=== PATIENT | female | born 1965 | race Caucasian/White ===

== ENCOUNTER 2024-01-21 12:03 | Outpatient (CLI) | payer OTHER, SELFPAY ==
--- NOTE | 2024-01-21 12:44 | W.ANESCHARGE ---
Anesthesia Charges Start Date/Time Anesthesia Start Date: 01/21/24 Anesthesia Start Time: 12:54 Stop Date/Time Anesthesia Stop Date: 01/21/24 Anesthesia Stop Time: 13:21
--- NOTE | 2024-01-21 13:22 | W.ANESCHARGE ---
Anesthesia Charges Start Date/Time Anesthesia Start Date: 01/21/24 Anesthesia Start Time: 12:54 Stop Date/Time Anesthesia Stop Date: 01/21/24 Anesthesia Stop Time: 13:21
== END 2024-01-21 12:04 | disposition home or self-care (01) ==
LOC: OP CLINIC 12:07
PROVIDERS: PCP Family Medicine; Visit Provider Internal Medicine Gastroenterology
DX: Z12.11 Encounter for screening for malignant neoplasm of colon (principal); K63.5 Polyp of colon; Z86.010 Personal history of colon polyps
CPT/HCPCS: 00811; 45385; 88305; J2704

== ENCOUNTER 2024-08-02 13:28 | Emergency (ER) | payer OTHER, SELFPAY ==
[2024-08-02] VITALS (10 sets, daily range): BP systolic 121–126; BP diastolic 79–95; PULSE 68–85; RESP 20; TEMP 36.6; O2SAT 96–100; BMI 32.6
--- NOTE | 2024-08-02 13:59 | ED.GENADULT ---
HPI - General Adult General Chief complaint: Chest Pain Stated complaint: Sent from for poss heart attack Time Seen by Provider: 08/02/24 13:51 History of Present Illness HPI narrative: around 1210 pt was laying in bed when L sided cp started, sweaty and sob. pt checked bp and it was 150's systolic. felt like heart was beating fast. called clinic and told to go to ED. has had similar episode inthe past but did not do anything about it. 58 year old woman presenting to the emergency department with concern of chest pain or pressure. Began a couple of hours ago prior to this interview. She was at rest at the time. Had an elevated blood pressure at 150 systolic. She felt like her heart was racing. She has also been sweaty. [place] a little short of breath. Since May in the think exposure [place] [employer] [place] has been having intermittent exertional dyspnea. She has been working at trying to lose weight but with a new scale at seem to suggest that she had gained weight here recently. Says some left-sided chest pain that she believes is since a rather firm ultrasound experience with residual pain at the left low chest and in the armpit. Has had a cholecystectomy Later also reports a more remote history of a parathyroid nodule and what sounds like was hypercalcemia. Later clarification -- these episodes can occur randomly but usually apparently at some degree of activity but maybe just walking in the grocery store partial feel chest tightness and feel like her heart is racing. Related Data Home Medications ?Medication ?Instructions ?Recorded ?Confirmed Flexeril 08/02/24 aspirin 08/02/24 atorvastatin 20 mg tablet 20 mg PO QPM 08/02/24 08/02/24 conjugated estrogens 0.625 mg 0.625 mg PO DAILY 08/02/24 08/02/24 tablet (Premarin) gabapentin 300 mg capsule 300 mg PO BID 08/02/24 08/02/24 metoprolol succinate 100 mg 100 mg PO DAILY 08/02/24 08/02/24 tablet,extended release 24 hr omeprazole 40 mg capsule,delayed 40 mg PO DAILY 08/02/24 08/02/24 release Allergies Allergy/AdvReac Type Severity Reaction Status Date / Time simvastatin Allergy Mild Nausea Verified 01/21/24 12:59 Sulfa (Sulfonamide Allergy Mild Itching Verified 08/02/24 13:42 Antibiotics) Paper tape Allergy Mild Unknown Uncoded 01/21/24 12:59 Review of Systems Status of ROS: Reports: 6 or more systems reviewed and unremarkable except as noted in History and below Exam Narrative: Exam Narrative: Pleasant. Animated. Skin is warm and dry. She is mildly labored with her breathing. Uncomfortable to palpation across the chest and in the axilla as well as the left low costal margin. Lungs are clear. Heart is in regular rate and rhythm without murmur or gallop. Abdomen is soft. Little tender just right of epigastrium without with deeper pressure. Const: Vital Signs, click to edit/add: Vital Signs - 24 hr 08/02/24 13:37 08/02/24 14:01 08/02/24 14:32 Temperature Pulse Rate 82 75 Pulse Rate [Pulse Oximeter] 85 Respiratory Rate 20 Blood Pressure 124/95 H 126/85 Blood Pressure [Le ft Upper Arm] 123/87 Pulse Oximetry 100 98 98 Oxygen Delivery Me thod Room Air 08/02/24 15:01 08/02/24 15:19 08/02/24 16:01 Temperature 97.8 F Pulse Rate 73 75 Pulse Rate [Pulse Oximeter] Respiratory Rate Blood Pressure 121/84 124/79 Blood Pressure [Le ft Upper Arm] Pulse Oximetry 96 96 Oxygen Delivery Me thod Documenting provider has reviewed patient's vital signs: yes Course Vital Signs Vital signs: Initial Vital Signs Temperature Source Temporal Artery Scan 08/02/24 13:37 Pulse Rate 85 08/02/24 13:37 Respiratory Rate 20 08/02/24 13:37 Respiratory Effort Normal, Spontaneous 08/02/24 13:37 Respiratory Depth Normal 08/02/24 13:37 Respiratory Pattern Normal 08/02/24 13:37 Blood Pressure 123/87 08/02/24 13:37 Blood Pressure Mean 99 08/02/24 13:37 Blood Pressure Position Supine 08/02/24 13:37 Pulse Oximetry 100 08/02/24 13:37 Oxygen Delivery Method Room Air 08/02/24 13:37 Vital Signs Pulse Rate 85 08/02/24 13:37 Respiratory Rate 20 08/02/24 13:37 Blood Pressure 123/87 08/02/24 13:37 Pulse Oximetry 100 08/02/24 13:37 Oxygen Delivery Method Room Air 08/02/24 13:37 Temperature 97.8 F 08/02/24 15:19 Pulse Rate 68 08/02/24 16:45 Respiratory Rate 20 08/02/24 13:37 Blood Pressure 124/79 08/02/24 16:01 Pulse Oximetry 97 08/02/24 16:45 Oxygen Delivery Method Room Air 08/02/24 13:37 Medical Decision Making MDM Narrative Medical decision making narrative: Does appear to have some reproducibility to this chest discomfort. I think anxiety might be contributing. Will need to check though that this does not represent pulmonary embolus or pneumothorax/pneumomediastinum. Doubtful pneumonia. Monitor for arrhythmia/tachyarrhythmia. Costochondritis? EKG obtained already prior to me entering the room independently reviewed by me shows normal sinus rhythm at a rate of 82 without apparent ischemic changes. These maybe tachyarrhythmias. These might be attacks of anxiety Monitored on alarm security or surveillance monitor without event. Labs are reassuring including repeat troponin. Symptoms improved. Vitals stable. Chest x-ray independently reviewed by me looks to be without infiltrate or pneumothorax and with normal cardiac silhouette. Radiology over-read below INDICATION: Mid chest pain. TECHNIQUE: Chest 1 view(s) COMPARISON: None. FINDINGS: Cardiomediastinal silhouette and pulmonary vasculature are normal. No focal consolidation. No layering pleural effusion. No pneumothorax. Ill-defined lesion in the proximal right humerus, with chondroid appearing matrix. IMPRESSION: 1. No focal consolidation. 2. Indeterminate lesion in the proximal right humerus, with chondroid appearing matrix. This can be further evaluated with MRI, on a nonemergent basis. Discussed these findings with Ms. Rodriguez and her . Pending findings in rhythm monitoring, might need echocardiogram. May benefit from pulmonary function tests. See patient discharge plan for further discussion We are placing a ZIO patch on you. Follow-up as recommended and results with your primary care provider approximately a week after monitoring window. There may want further cardiac workup or maybe pulmonary. Also inquire with your doctor as to whether not there is prior imaging that might show this right humeral head lesion and offer some reassurance of stability or whether or not further workup is indicated. Medical Records Medical records reviewed: Yes I reviewed the patient's medical records Lab Data Lab results reviewed: Yes I reviewed the patient's lab results Labs: Lab Results 08/02/24 08/02/24 08/02/24 Range/Units 13:45 14:18 15:32 WBC 5.87 (4.50-11.00) K/uL RBC 4.86 (4.00-5.20) m/uL Hgb 13.7 (12.0-16.0) gm/dL Hct 42.0 (33.0-51.0) % MCV 86 (80-100) fL MCH 28 (26-34) pg MCHC 33 (32-36) gm/dL RDW Coeff of Nilda 13.6 (11.5-15.5) % Plt Count 342 (140-440) K/uL Neut % (Auto) 42.9 (42.0-72.0) % Lymph % (Auto) 42.6 (20-44) % Ford % (Auto) 8.3 (0.0-11.0) % Eos % (Auto) 5.3 (0.0-7.0) % Baso % (Auto) 0.9 (0.0-3.0) % Neut # (Auto) 2.52 (1.7-7.0) K/uL Lymph # (Auto) 2.50 (0.90-2.90) K/uL Ford # (Auto) 0.50 (0.00-0.90) K/UL Eos # (Auto) 0.31 (0.00-0.50) K/uL Baso # (Auto) 0.05 (0.00-0.30) K/uL Abs Immat Gran (auto) 0.00 (0.00-0.30) K/uL Imm/Tot Granulo (auto) 0.0 % D-Dimer Quant (PE/DVT) 0.32 (0.00-0.50) ug/ml Sodium 136 (135-149) mmol/L Potassium 4.0 (3.6-5.1) mmol/L Chloride 103 (96-114) mmol/L Carbon Dioxide 22 (20-32) mmol/L Anion Gap 11 (7-15) mEq/L BUN 12 (7-30) mg/dL Creatinine 0.8 (0.5-1.5) mg/dL Estimated Creat Clear 70.88 Estimated GFR 85 ml/min Glucose 115 (60-115) mg/dL Calcium 9.2 (8.4-10.6) mg/dL Total Bilirubin 0.5 (0.1-1.5) mg/dL Direct Bilirubin 0.2 (0.0-0.5) mg/dL AST 26 (12-35) U/L ALT 25 (4-35) U/L Alkaline Phosphatase 67 (40-150) U/L Troponin I < 0.01 L (0.01-0.04) ng/mL C-Reactive Protein < 0.5 L (0.5-1.0) mg/dL NT-Pro-B Natriuret Pep 47 pg/mL Total Protein 7.7 (6.0-8.3) g/dL Albumin 4.4 (3.3-5.0) g/dL POC Troponin I 0.00 L 0.00 L (0.01-0.04) ng/ml Discharge Plan Discharge Clinical Impression: Atypical chest pain, Bone lesion Patient Disposition: Home w/ Parent or Adult Condition: Improved Additional Instructions: We are placing a ZIO patch on you. Follow-up as recommended and results with your primary care provider approximately a week after monitoring window. There may want further cardiac workup or maybe pulmonary. Also inquire with your doctor as to whether not there is prior imaging that might show this right humeral head lesion and offer some reassurance of stability or whether or not further workup is indicated. Prescriptions: No Action atorvastatin 20 mg tablet 20 mg PO QPM metoprolol succinate 100 mg tablet extended release 24 hr 100 mg PO DAILY omeprazole 40 mg capsule,delayed release(DR/EC) 40 mg PO DAILY Premarin 0.625 mg tablet 0.625 mg PO DAILY gabapentin 300 mg capsule 300 mg PO BID aspirin Flexeril Follow Up/Referrals: Yulia Pride MD [Primary Care Provider] - Stand Alone Forms: Code On Network Coding Info Instructions
[2024-08-02 14:30] LABS: Basophils Absolute Auto 0.05 K/uL (0.00-0.30); Basophils Percent Auto 0.9 % (0.0-3.0); Eosinophils Absolute Auto 0.31 K/uL (0.00-0.50); Eosinophils Percent Auto 5.3 % (0.0-7.0); Hemoglobin* 13.7 gm/dL (12.0-16.0); Lymphocytes Percent Auto 42.6 % (20-44); Mean Corpuscular HGB Conc 33 gm/dL (32-36); Mean Corpuscular Hemoglobin 28 pg (26-34); Mean Corpuscular Volume 86 fL (80-100); Monocytes Percent Auto 8.3 % (0.0-11.0); Neutrophils Absolute Auto 2.52 K/uL (1.7-7.0); Neutrophils Percent Auto 42.9 % (42.0-72.0); Platelet Count* 342 K/uL (140-440); RDW Coefficient of Variation % 13.6 % (11.5-15.5); Red Blood Count 4.86 m/uL (4.00-5.20); White Blood Count* 5.87 K/uL (4.50-11.00)
[2024-08-02 14:47] LABS: Albumin* 4.4 g/dL (3.3-5.0); Chloride* 103 mmol/L (96-114)
[2024-08-02 14:48] LABS: Sodium* 136 mmol/L (135-149)
[2024-08-02 14:50] LABS: Creatinine* 0.8 mg/dL (0.5-1.5); Est. Creatinine Clearance* 70.88; Estimated Glomerular Filt Rate 85 ml/min
[2024-08-02 14:51] LABS: Alanine Aminotransferase* 25 U/L (4-35); Alkaline Phosphatase* 67 U/L (40-150); Anion Gap 11 mEq/L (7-15); Aspartate Amino Transferase* 26 U/L (12-35); Bilirubin Direct* 0.2 mg/dL (0.0-0.5); Bilirubin Total* 0.5 mg/dL (0.1-1.5); Blood Urea Nitrogen* 12 mg/dL (7-30); Calcium* 9.2 mg/dL (8.4-10.6); Carbon Dioxide* 22 mmol/L (20-32); Glucose* 115 mg/dL (60-115); Total Protein* 7.7 g/dL (6.0-8.3)
[2024-08-02 14:54] LABS: C Reactive Protein* < 0.5 mg/dL (0.5-1.0); Slide Review Reflex No
[2024-08-02 14:57] LABS: D Dimer Quantitative* 0.32 ug/ml (0.00-0.50)
[2024-08-02 15:08] LABS: NT Pro B Type NatriureticPept* 47 pg/mL; Troponin I* < 0.01 ng/mL (0.01-0.04)
--- OUTSIDE RECORDS SUMMARY | 2024-08-02 16:16 | XMS_ITS | Continuity of Care Document ---
Author Organization [facility] Address [address] [place] [address] Phone Care Team Providers Care Workforce Management Analyst Name Role Phone Unavailable Unavailable Unavailable Allergies, Adverse Reactions, Alerts Substance Reaction Status Criticality Sulfa (Sulfonamide Antibiotics) hives Active No Information Medications Medication Instructions Dosage Effective Dates (start - stop) Status Comments Reglan 10 mg Tab - No Longer Active Nasonex 50 mcg/Actuation [place] - No Longer Active Singulair 10 mg Tab - No Longer Active Zyrtec 10 mg Tab - No Longer Active methocarbamol 750 mg Tab pt takes 2 tabs TID - No Longer Active ibuprofen 600 mg Tab 2006 - No Longer Active Neurontin 300 mg Cap Take two capsules by mouth three times per day - No Longer Active Procedures Procedure Date Inj Anes Epidur; Lumb/sac 1 Le 07 Fluoroscopic Guidance For Needle 2006 Offic Cons New/estab Mod-hi 60 07 Advance Directives Directive Yes / No Effective Date File Name No Information Encounters Encounter Description Practice Location Reason(s) For Visit Diagnoses Date Provider Providers Copied on Encounter [facility], [address], [place], [place], [id number], tel:[phone] [facility] No Information No Information Referring Provider: Marcos Nixon MD, [address] [place] [address] [address] [facility] [place], [place], [facility]. tel:[phone] [facility], [address], [place], [id number], tel:[phone] [facility] No Information Oct-0 9-200 7 No Information Referring Provider: Marcos Nixon MD, [address] [place] [address] [address] [facility] [place], [place], [facility]. tel:[phone] Offic Cons New/estab Mod-hi 60 [facility], [address], [place], [place], [id number], tel:[phone] [facility] No Information Oct-0 4-200 7 Jenna Farrell. [address], [place], [id number], . tel:[phone] Referring Provider: Marcos Nixon MD, [address] [place] [address] [address] [facility] [place], [place], [facility]. tel:[phone] Family History Family Member Type Diagnosis Age At Onset No Information Payers Payer name Insurance type Covered republican ID Authormayelin cole(s) [employer] Plus BL [id number] Social History Type Description Quantity Date Captured Comments Sex Female Smoking Status No Information Chief Complaint And Reason For Visit No Information Reason For Referral Reason For Referral No Information History Of Present Illness Encounter Date Complaint History Of Prese nt Illness No Information Functional Status Date Functional Assessmen t No Information Instructions Date Instruction Additional Infor mation No Information Assessments Type Assessment Date No Information Patient Care Teams Name Effective Dates (start - stop) Status Members No Information
--- OUTSIDE RECORDS SUMMARY | 2024-08-02 16:16 | XMS_ITS | Clinical Summary ---
Author Organization [facility] Address [place], [place] [address] Care Team Providers Care Software Technician Name Role Phone Yulia Pride MD Primary Care Provider + Allergies Active Allergy Reactions Criticality Noted Date Comments Adhesive Rash Low 11/19/2009 Paper tape Simvastatin Nausea And Vomiting,Hepatic Dysfunction Low 07/24/2015 Sulfa (Sulfonamide Antibiotics) Itching,Edema Low 09/23/2005 Medications ZYRTEC 10 MG TAB Take one tablet daily for allergies 30 5 2005 Active aspirin (ECOTRIN) 81 mg enteric coated tablet Take 1 tablet by mouth once daily with a meal. 0 2016 Active estrogens conjugated (Premarin) 0.625 mg tabletIndications:Post menopausal syndrome Take 1 Tablet (0.625 mg) by mouth once daily. 90 Tablet 3 2023 Active gabapentin (NEURONTIN) 300 mg capsuleIndications:Chr onic midline thoracic back pain Take 1 Capsule (300 mg) by mouth two times daily. 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 180 Tablet 3 2023 Active melatonin 10 mg cap Take 10 mg by mouth once daily if needed. Active atorvastatin (LIPITOR) 20 mg tabletIndications:Pure hypercholesterolemia TAKE 1 TABLET BY MOUTH AT BEDTIME 90 Tablet 1 2024 Active omeprazole (PRILOSEC) 40 mg Delayed-Release capsuleIndications:Gas troesophageal reflux disease with esophagitis without hemorrhage Take 1 Capsule (40 mg) by mouth once daily before a meal. 90 Capsule 1 2024 Active metoprolol succinate (TOPROL XL) 100 mg Sustained-Release tabletIndications:Esse ntial hypertension Take 1 Tablet (100 mg) by mouth once daily. 90 Tablet 1 2024 Active DULoxetine (CYMBALTA) 60 mg Delayed-release capsuleIndications:Chr onic midline thoracic back pain Take 1 Capsule (60 mg) by mouth once daily. 90 Capsule 1 2024 Active DULoxetine (CYMBALTA) 60 mg Delayed-release capsuleIndications:Chr onic midline thoracic back pain Take 1 Capsule (60 mg) by mouth once daily. 90 Capsule 3 07/24 Discontinued( *Availability /Formulary change/Cost of medication) metoprolol succinate (TOPROL XL) 100 mg Sustained-Release tabletIndications:Esse ntial hypertension Take 1 Tablet (100 mg) by mouth once daily. 90 Tablet 3 07/24 Discontinued( *Availability /Formulary change/Cost of medication) omeprazole (PRILOSEC) 40 mg Delayed-Release capsuleIndications:Gas troesophageal reflux disease with esophagitis without hemorrhage Take 1 Capsule (40 mg) by mouth once daily before a meal. 90 Capsule 3 07/24 Discontinued( *Availability /Formulary change/Cost of medication) atorvastatin (LIPITOR) 20 mg tabletIndications:Pure hypercholesterolemia Take 1 Tablet (20 mg) by mouth at bedtime. 90 Tablet 2 07/20 Discontinued Active Problems Problem Noted Date Diagnosed Date History of colon polyps 09/04/2020 Overview (01/25/2024): Noted at [place] 2006. 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 Repeat BMD scan 07/2016 showed normal lumbar spine. -19. & -1.8 of the hips. 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 Mammogram normal 11/06/10 Cholesterol 01/11: total-241/HDL-39/LDL-158/TG-222 Bone density at [place] 2006 normal. Depressive disorder, not elsewhere classified 03/02/20 05 10/23/2010 ALLERGY UNSPECIFIED 12/03/2004 10/24/19 11 EXOTROPIA, MONOCULAR-OS 11/04/200010/04 Encounters Date Type Department Care Team Description 08/02/2024 Nurse [address] [address] Yulia Pride MD Chest Pain 07/21/[address] [address] Yulia Pride MD Refill Request (Omeprazole, Metoprolol Succinate, Duloxetine) 07/18/[address] [address] Yulia Pride MD Refill Request (Atorvastatin) from Last 3 Months Immunizations Name Administration Dates Next Due COVID-19 VACCINE COMIRNATY (PFIZER-BIONTECH 30MCG/0.3ML) 12YO+ PFS 05/17/2023 COVID-19 vaccine (Moderna 50mcg/0.5mL) 12YO+ BIVALENT PF, MDV 05/19/2022 COVID-19 vaccine (Pfizer-Bio NTech 30mcg/0.3mL) 12YO+ ANGELINA-SUCROSE PF, MDV 12/05/2021 COVID-19 vaccine (Pfizer-Bio NTech 30mcg/0.3mL) PF, MDV 06/06/2021,10/28/2020,10/07/2020, 021 Influenza RIV4 (Age 18+ Year s) PRESERV FREE 05/19/2022 Influenza, IIV4 05/17/2023 Td (Age >=7 Years) 01/11/2019,03/02/2005 Tdap 12/27/2007 Family History Medical History Relation Name Comments Good Health Brother Hypertension Father Other Father anklyosising sp ondylsis Alcohol/Drug Mother Hypertension Mother Stroke Mother Genetic Other 1 cancer~hyperten moises - mother~heart disease~diabetes - grandfather Genetic Other 2 cancer~hyperten moises - mother~heart disease~diabetes - grandfather~2 children with strabismus Diabetes Paternal Grandfather Good Health Sister Asthma Son Relation Name Status Comments Brother Alive Father Alive Maternal Grandfather Maternal Grandmother Mother Other 1 Other 2 Paternal Grandfather Paternal Grandmother Sister Alive Son Alive Social History Tobacco Use Types Packs/Day Years Used Date Smoking Tobacco: Former Cigarettes 0.3 22 1 - 04/22/2020 Smokeless Tobacco: Never Tobacco Cessation:Ready to Q uit: Yes Comments:planning to quit soon Alcohol Use Standard Drinks/Week Comments Not Currently 0 (1 standard drink = 0.6 oz pur e alcohol) quit fall 2016 PHQ-2 Answer Date Recorded PHQ-2 TOTAL SCORE 0 10/29/2023 Social Connections Answer Date Recorded Do you often feel lonely or isolated from those around you? 0 10/29/2023 Financial Resource Strain Answer Date R ecorded Difficulty of Paying Living Expenses 3 10/29/2023 Difficulty of Paying Living Expenses Not on file 10/29/2023 Food Insecurity Answer Date Recorded Do you worry your food will run out before you are able to buy more? 1 10/29/2023 Transportation Needs Answer Date Record ed Does lack of transportation keep you from medica l appointments? 1 10/29/2023 Does lack of transportation keep you from work, meetings or getting things that you need? 1 10/29/2023 Housing Stability Answer Date Recorded What is your housing situation today? 1 10/29/2023 Utilities Answer Date Recorded Do you have trouble paying f or utilities (for example, heat, electricity, water, phone)? 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 [employer] Gender Identity Not on file Sexual Orientation Not on file Obstetrics History Para Term AB IAB SAB Ectopic Multiple Livin g Live Births 3 3 Date Outcome GA Total Labor Labor/2nd/3rd Weight Sex Type Anes PTL Anna Marie A1 A5 Name Clin Last Filed Vital Signs Vital Sign Reading Time Taken Comments Blood Pressure 110/80 01/10/2024 1:58 PM CDT Pulse 84 01/10/2024 1:58 PM CDT Temperature 36.6 C (97.9 F) 01/10/2020 8:14 AM CDT Respiratory Rate 14 11/14/2012 2:49 PM CDT Oxygen Saturation - - Inhaled Oxygen Concentration - - Weight 95.1 kg (209 lb 9.6 oz) 01/10/2024 1:58 P M CDT Height 167.6 cm (5' 6) 01/10/2024 1:58 PM CDT Body Mass Index 33.83 01/10/2024 1:58 PM CDT Plan of Treatment Health Maintenance Due Date Last Done Comments HIV for age 15-65 1979 Hepatitis C screening for ag e 18-79 1982 Pneumococcal series for age 50+ (1 of 1 - PCV) 2014 Zoster (shingles) series for age 50+ (1 of 2) 2014 COVID-19 vaccine series ( season) 2024 05/17/2023, 05/19/2022, 12/05/2021, Additional history exists Depression screening for age 12+ 10/28/2024 10/29/2023, 10/29/2023, 10/16/2022, Additional history exists Mammogram for age 45-75 11/24/2024 11/25/19 24, 11/23/2023, 11/17/2022, Additional history exists BMI (ht and wt on same day) for age 18+ 01/09/2025 01/10/2024, 10/29/2023, 10/16/2022, Additional history exists Lipids for age 45-75 10/28/2028 10/29/2023, 10/16/2022, 10/10/2021, Additional history exists Tetanus booster 01/11/2029 01/11/2019, 12/04, 03/02/2005 Colonoscopy through age 75 01/20/203101/20, 01/21/2024, 08/03/2014, Additional history exists Tdap Completed 12/27/2007 Procedures Procedure Name Priority Date/Time Associated Diagnosis Comments COLONOSCOPY SCREENING Routine 01/21/2024 12:00 AM CDT Polyp of colon, unspecified part of colon, unspecified type History of colon polyps XR MAMMO LIDA UNI ADDL VIEWS LEFT CHECO 11/25/2023 1:38 PM CDT Abnormal mammogram LIPID PANEL W REFLEX MEASURED LDL Routine 10/29/2023 10:56 AM CDT Pure hypercholesterolemia from Last 3 Months or Most Recently Relevant to Health Maintenance Results * COLONOSCOPY SCREENING (01/21/2024 12:00 AM CDT) us Yulia Pride MD GI PROCEDURE ORD Final R esult * XR MAMMO LIDA UNI ADDL VIEWS LEFT (11/25/2023 1:38 PM CDT) Anatomical Region Laterality Modality BREASTS, Breast Left Mammography Impressions 11/26/2023 8:44 AM CDT Normal island of glandular tissue in the upper outer LEFT breast. This correlates with recent focal asymmetry on screening mammogram. No suspicious mass identified in the upper outer LEFT breast. RECOMMENDATION: Routine screening mammography of both breasts with tomosynthesis in one year. BI-RADS Category 1: Negative Sumit Zambrano M.D. Diagnostic Radiologist [email or web address] PAF/sp 11/25/2023 PATIENTS: You will also receive a letter with your examination results in an easy to read format. If you have questions about your results, please contact your referring provider. Narrative 11/26/2023 8:44 AM CDT For Patients: As a result of the Cures Act, medical imaging exams and procedure reports are released immediately into your electronic medical record. You may view this report before your referring provider. If you have questions, please contact your health care provider. LEFT BREAST DIGITAL ADDITIONAL VIEWS MAMMOGRAM WITH TOMOSYNTHESIS 11/25/2023 LEFT BREAST ULTRASOUND 11/25/2023 CLINICAL HISTORY: Callback from recent screening mammogram for focal asymmetry in the upper outer LEFT breast. COMPARISON: Screening mammogram studies dated 11/23/2023, 11/17/2022, 10/20/2021, 09/04/2020. TECHNIQUE: LEFT additional views mammography using digital technique with tomosynthesis. LEFT breast ultrasound was also performed. BREAST COMPOSITION: The breasts are almost entirely fatty. FINDINGS: Diagnostic LEFT breast mammogram: There is effacement of the focal asymmetry in the upper outer LEFT breast. No mass or distortion, for example on the spot compression CC view with tomosynthesis. Diagnostic LEFT breast ultrasound: Diagnostic ultrasound evaluation of the upper outer LEFT breast demonstrates no suspicious mass or complex cystic lesion. Island of normal glandular tissue with surrounding fat lobules noted at 1 o'clock 12 cm from the nipple, likely corresponding to focal asymmetry on recent screening mammogram. us Yulia Pride MD MAMMO Final Re sult * (ABNORMAL) LIPID PANEL W REFLEX MEASURED LDL (10/29/2023 10:56 AM CDT) CHOLESTEROL,TOTAL 286(H) 100 - 199 mg/dL 10/29/2023 2:07 PM CDT [facility] Comment: Cholesterol, Total Reference Ranges Desirable <200 mg/dL Borderline 200-239 mg/dL High >=240 mg/dL TRIGLYCERIDES 240(H) <150 mg/dL 10/29/2023 2:07 PM CDT [facility] HDL CHOLESTEROL 66 >40 mg/dL 2:07 PM CDT [facility] NON-HDL CHOLESTEROL 220(H) <145 mg/dl 10/29/2023 2:07 PM CDT [facility] CHOL/HDL RATIO 4.33 <4.50 10/29/2023 2:07 PM CDT [facility] LDL CHOLESTEROL 172(H) <=130 mg/dL 10/29/2023 2:07 PM CDT [facility] VLDL CHOLESTEROL 48(H) <=30 mg/dL 10/29/2023 2:07 PM CDT [facility] PROVIDER ORDERED STATUS RANDOM 10/29/2023 2:07 PM T [facility] Blood BLOOD SPECIMEN / Unknown Venipuncture / Unknown 10/29/2023 10:56 AM CDT 10/29/2023 10:56 AM CDT us Yulia Pride MD CHEMISTRY Final Re sult [facility] [address] [place] [address], [place] from Last 3 Months or Most Recently Relevant to Health Maintenance Care Teams Software Technician Relationship Specialty [place] [address] [place] [address] PCP - General Family Practice 09/28/18
--- OUTSIDE RECORDS SUMMARY | 2024-08-02 16:16 | XMS_ITS | Continuity of Care Document ---
Author Organization [facility] Address [address] [place] [address] [address] [place] [address] Phone Care Team Providers Care Medical Scientist Name Role Phone Guille Mcmanus MD Unavailable Unavailable Advance Directives Directive Yes / No Effective Date File Name No Information Encounters Encounter Description Practice Location Reason(s) For Visit Diagnoses Date Provider Providers Copied on Encounter [facility], [address] [place], [place] [address] [place] [address], [address], [place] tel:[phone] [facility] [email or web address] [facility] No Information Yonathan Han. [facility], [address], [address], [place], [place], [id number] , [place]. tel:[phone] Family History Family Member Type Diagnosis Age At Onset No Information Payers Payer name Insurance type Covered democrat ID Authoriza tion(s) No Information Social History Type Description Quantity Date Captured [...]
--- OUTSIDE RECORDS SUMMARY | 2024-08-02 16:16 | XMS_ITS | Clinical Summary ---
Author Organization [facility] Address [address] [place] [address] Care Team Providers Care Block Layer Name Role Phone Lewis Bahena MD Primary Care Provider [phone] Source Comments You are receiving this document as you are listed as the primary care provider,follow-up provider, or the patient has been referred to you for consultation.This is in compliance with the Medicare and[facility] Incentive [facility],which states Providers who transition their patient to another setting of careor provider of care or refers their patient to another provider of care shouldprovide summary care record for each transition of care or referral. [employer] Allergies Active Allergy Reactions Criticality Noted Date Comments Influenza Virus Vaccine Hives High 05/30/2021 Sulfa Antibiotics 12/28/2008 PN: LW Reaction: swelling Medications Medication Sig Dispensed Refills Start Date End Date Status docusate sodium (AKA COLACE) 100 MG capsule Take 1 capsule by mouth 2 times daily. LW Addl Instr:Indicated for: Stool Softener 1 12/28/2008 Active MORphine 15 MG/ML injection 2 mg. LW Comment:Not Rx'd by ===> Clinician 12/28/2008 Active simvastatin (AKA ZOCOR) 20 MG tablet Take 1 tablet by mouth every evening. LW Addl Instr:Indicated for: High Cholesterol 12/28/2008 Active cetirizine/pseudoeph edrine (AKA ZYRTEC-D) 5-120 MG tablet Take 2 tablets by mouth every 12 hours as needed. LW Addl Instr:Indicated for: Nasal Congestion 12/28/2008 Active unknown medication Indications: PN: 12/28/2008 Active pantoprazole (AKA PROTONIX) 40 MG tablet Take 1 tablet by mouth daily (every 24 hours). LW Addl Instr:Indicated for: Acid Reflux 12/28/2008 Active Ergocalciferol (VITAMIN D2) 400 UNITS TABS Indications: PN: 12/28/2008 Active METAPROTERENOL SULFATE OR 50 mg. Active atorvastatin (LIPITOR) 20 MG tablet Take 20 mg by mouth daily. Active Pseudoephedrine-APAP 30-500 MG Active gabapentin (NEURONTIN) 100 MG capsule Take 100 mg by mouth three times a day. 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 Body Mass Index 32.28 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 Plan of Treatment Health Maintenance Due Date Last Done Comments Cervical Cancer Screening Due 1964 Colon Cancer Screening Plan Due 1964 Hep C Screening (Preventive Services) 1965 Mammogram 1964 HIV Screening (Preventive Services) 1980 Adult Preventive Visit 1982 HepB (1) 1983 Cholesterol 2009 Zoster/Shingles (1 of 2) 2014 COVID-19 Vaccine ( season) 2024 10/28/2020, 10/07/2020 Influenza (#1) 2024 DTaP/Tdap/Td (5 - Tdap) 01/11/2029 01/12/20 19, 12/27/2007, 12/03/2005, Additional history exists HepA Aged Out No longer eligi ble based on patient's age to complete this topic Hib Aged Out No longer eligi ble based on patient's age to complete this topic IPV (Polio) Aged Out No longer eligi ble based on patient's age to complete this topic MCV4 Aged Out No longer eligi ble based on patient's age to complete this topic Pneumococcal Aged Out No longer eligi ble based on patient's age to complete this topic Care Teams Block Layer Relationship Specialty [place] [address] [place] [address] PCP - General 10/06/10
== END 2024-08-02 17:13 | disposition home or self-care (01) ==
PROVIDERS: Emergency Provider Family Medicine; PCP Family Medicine
DX: R07.9 Chest pain, unspecified (principal); M89.9 Disorder of bone, unspecified
CPT/HCPCS: 36415; 71045; 80048; 80076; 83880; 84484; 85025; 85379; 86140; 93246; 99284